=== PATIENT | female | born 1980 | race African-American/Black ===

== ENCOUNTER 2022-12-31 11:27 | Emergency (ER) | payer OTHER ==
[~2022-12-31] VITALS: Ht 167.6 cm; Wt 74.4 kg
[2022-12-31 11:30] VITALS: BP_SYST 132
--- NOTE | 2022-12-31 11:30 | NUR ---
ER at bedside examining patient.
--- NOTE | 2022-12-31 11:31 | NUR ---
Pt BIB ambulance. C/O R side leg and shoulder pain related to fall that happened at work. Pt states to have slipped on water causing her to fall. Pt states pain 8/10. Pt does not recall if LOC occured. Pt full ROM on R leg but states apply pressure hurts her. Pt denies N/V/D. Pt denies SOB. AAOX4. Pt VSS. Pt PERRLA. Skin dry and intact. Pt speaking full complete sentences. Pt in bed with side rails up.
[2022-12-31] MEDS ORDERED: KETOROLAC TROMETHAMINE 60 MG/2 ML VIAL IM ONE (11:45)
--- NOTE | 2022-12-31 12:19 | NUR ---
Pt to radiology via [facility].
--- NOTE | 2022-12-31 13:15 | NUR ---
Patient given written and verbal discharge instructions and verbalizes understanding. ER MD discussed with patient the results and treatment provided. Patient in stable condition. ID arm band removed. Rx of given. Patient educated on pain management and to follow up with PMD. Opportunity for questions provided and answered. Medication side effect fact sheet provided.
[2022-12-31] MEDS ORDERED: NAPR-1172 PO (13:16)
[2022-12-31 13:58] VITALS: BP_SYST 105
== END 2022-12-31 13:15 | disposition home or self-care (01) ==
LOC: SED 11:27
DX: S16.1XXA Strain of muscle, fascia and tendon at neck level, initial encounter (principal); S09.90XA Unspecified injury of head, initial encounter; E11.9 Type 2 diabetes mellitus without complications; Z79.899 Other long term (current) drug therapy; W01.0XXA Fall on same level from slipping, tripping and stumbling without subsequent striking against object, initial encounter; Y93.89 Activity, other specified; Y92.89 Other specified places as the place of occurrence of the external cause; Y99.8 Other external cause status
CPT/HCPCS: 99285; 70450; 72125; 72192; 96372; 76376; J1885